=== PATIENT | male | born 1995 | race Caucasian/White ===

== ENCOUNTER 2020-01-20 03:42 | Emergency (ER) | payer MEDICAID, OTHER ==
[~2020-01-20] VITALS: Ht 177.8 cm; Wt 61.0 kg
[~2020-01-20 03:42] MED LIST: NO HOME MEDS
[2020-01-20 03:45] VITALS: BP 137/86
== END 2020-01-20 04:31 | disposition home or self-care (01) ==
LOC: ER 03:43
DX: F15.10 Other stimulant abuse, uncomplicated (principal); F43.20 Adjustment disorder, unspecified; F12.90 Cannabis use, unspecified, uncomplicated
CPT/HCPCS: 99281

== ENCOUNTER 2020-05-04 12:53 | Emergency (ER) | payer MEDICAID, OTHER ==
[~2020-05-04] VITALS: Ht 177.8 cm; Wt 62.8 kg
[2020-05-04 12:59] VITALS: BP 138/89
== END 2020-05-04 15:16 | disposition home or self-care (01) ==
LOC: ER 12:53
DX: M79.672 Pain in left foot (principal); F12.90 Cannabis use, unspecified, uncomplicated; F15.90 Other stimulant use, unspecified, uncomplicated
CPT/HCPCS: 73630; 99284